=== PATIENT | male | born 1945 | race Caucasian/White ===

== ENCOUNTER 2019-07-27 20:03 | Inpatient (IN) | payer MEDICARE ==
[~2019-07-27] VITALS: Ht 177.8 cm; Wt 100.8 kg
[2019-07-27 21:15] LABS: ALANINE AMINOTRANSFERASE 23 U/L (12-78); ALBUMIN 3.7 G/DL (3.4-5.0); ALBUMIN/GLOBULIN RATIO 1.2 (1.1-1.5); ALKALINE PHOSPHATASE 78 IU/L (46-116); ANION GAP 5 (8-16); ASPARTATE AMINO TRANSFERASE 24 U/L (10-37); BILIRUBIN,TOTAL 0.6 MG/DL (0.1-1.0); BLOOD UREA NITROGEN 12 MG/DL (7-18); BUN/CREATININE RATIO 11.8 (5.4-32.0); CALCIUM 8.4 MG/DL (8.5-10.1); CHLORIDE 91 MMOL/L (99-107); CREATININE 1.02 MG/DL (0.60-1.10); GLUCOSE 122 MG/DL (70-104); POTASSIUM 3.9 MMOL/L (3.5-5.1); TOTAL CARBON DIOXIDE 24.2 MMOL/L (24-32); TOTAL PROTEIN 6.9 G/DL (6.4-8.2); eGFR 71 ML/MIN
[2019-07-27] MEDS ORDERED: ipratropium/albuterol 3ml nebule NEB ONE (21:15)
[2019-07-27 21:24] LABS: SODIUM 120 MMOL/L (135-145)
[2019-07-27 21:27] LABS: BASOPHILS % (AUTO) 0.2 % (0-1); EOSINOPHILS % (AUTO) 0.1 % (0-6); HEMATOCRIT 36.4 % (42.0-52.0); LYMPHOCYTES # (AUTO) 0.5 X10'3 (1.1-4.8); LYMPHOCYTES % (AUTO) 9.4 % (21-51); MEAN CORPUSCULAR HEMOGLOBIN 33.1 PG (27.0-31.0); MEAN CORPUSCULAR HGB CONC 35.6 g/dL (33.0-36.5); MEAN CORPUSCULAR VOLUME 92.9 FL (78-98); MEAN PLATELET VOLUME 8.4 FL (7.4-10.4); MONOCYTES # (AUTO) 0.5 X10'3 (0-0.9); MONOCYTES % (AUTO) 10.6 % (2-12); NEUTROPHILS % (AUTO) 79.7 % (42-75); PLATELET COUNT 150 X10'3 (140-440); RED BLOOD COUNT 3.91 X10'6 (4.70-6.10); RED CELL DISTRIBUTION WIDTH 13.5 % (11.5-14.5); WHITE BLOOD COUNT 5.1 X10'3 (4.5-11.0)
[2019-07-27] MEDS ORDERED: DIPH50CA46 PO (21:29)
[2019-07-27] MEDS ORDERED: INSU100C10 SQ (21:29)
[2019-07-27] MEDS ORDERED: LANTUS SQ (21:29)
[2019-07-27] MEDS ORDERED: LISI40TA4 PO (21:29)
[2019-07-27] MEDS ORDERED: CLOP75TA35 PO (21:29)
[2019-07-27] MEDS ORDERED: ATOR20TA PO (21:29)
[2019-07-27] MEDS ORDERED: normal saline 1000ML IV soln IVB ONE (21:30)
[2019-07-27] MEDS ORDERED: mag hydrox/Alum hydrox/simeth 30ml oral suspension PO PRN (22:30)
[2019-07-27] MEDS ORDERED: magnesium 4gm in 100ml NS 100 ML IV PRN (22:30)
[2019-07-27] MEDS ORDERED: potassium Cl 20 mEq SR tablet PO PRN ×2 (22:30)
[2019-07-27] MEDS ORDERED: acetaminophen 325mg tablet PO PRN ×2 (22:30)
[2019-07-27] MEDS ORDERED: magnesium 2GM in 50ml NS 50 ML IV PRN (22:30)
[2019-07-27] MEDS ORDERED: potassium CL 10mEq/100ml bag 100 ML IV PRN ×2 (22:30)
[2019-07-27] MEDS ORDERED: magnesium hydroxide 30ml (MOM) UD suspension PO PRN (22:30)
[2019-07-27] MEDS ORDERED: magnesium Cl slow-release 64mg tablet PO PRN (22:30)
[2019-07-27] MEDS ORDERED: oseltamivir phos 75mg capsule PO ONE (22:40)
[2019-07-28] VITALS (7 sets, daily range): BP systolic 117–146; BP diastolic 78–100
[2019-07-28] MEDS: ondansetron/PF 4mg/2ml inj IV PRN ×2 (01:17→19:16)
--- NOTE | 2019-07-28 01:17 | NUR ---
Patient in room ED 12. I have received report from DION Min and had the opportunity to ask questions and assume patient care. Pako has agreed to ask the MD if the TROPS need to be started over due to the missed 3hr TROP draw at 2326.
--- NOTE | 2019-07-28 01:58 | NUR ---
Patient arrived to the U 3019 @0135. Patient walked out of [facility] to the bed. A&Ox4. Vital signs: BP 122/84, HR 88, SpO2 92%, RR 24. Patient has complaints of dyspnea from exertion. Denies pain, nausea, and burning on urination. Vomit bag is at bedside for complaints of nausea in the ER. Patient was placed on tele monitor. Educated on isolation status, fluid restriction, fall safety, and MRSA swab.
[2019-07-28] MEDS ORDERED: dextrose 50%-water 50ml dispensing syringe IV PRN ×2 (05:25)
[2019-07-28] MEDS ORDERED: dextrose ORAL solution 15 GM/59 ML bottle PO PRN ×2 (05:25)
[2019-07-28] MEDS ORDERED: MESSAGE TO PHARMACY PO ONE (05:25)
[2019-07-28] MEDS ORDERED: glucagon, human recombinant 1mg kit SUBCUT PRN (05:25)
--- NOTE | 2019-07-28 05:29 | NUR ---
New orders: Hypo/hyperglycemic protocol and BMP labs at 0900 entered per MD orders on the patient's progress note.
--- NOTE | 2019-07-28 06:17 | NUR ---
Problems reprioritized. Patient report given, questions answered & plan of care reviewed with DION Smith.
--- NOTE | 2019-07-28 06:20 | NUR ---
Patient in room PCU 3019. I have received report from DION Snowden and had the opportunity to ask questions and assume patient care.
[2019-07-28 06:45] LABS: ALBUMIN 3.5 G/DL (3.4-5.0); ANION GAP 3 (8-16); BLOOD UREA NITROGEN 11 MG/DL (7-18); BUN/CREATININE RATIO 12.1 (5.4-32.0); CALCIUM 8.7 MG/DL (8.5-10.1); CHLORIDE 92 MMOL/L (99-107); CREATININE 0.91 MG/DL (0.60-1.10); GLUCOSE 111 MG/DL (70-104); SODIUM 122 MMOL/L (135-145); TOTAL CARBON DIOXIDE 26.6 MMOL/L (24-32); eGFR 81 ML/MIN
[2019-07-28 06:49] LABS: POTASSIUM 4.8 MMOL/L (3.5-5.1)
[2019-07-28 07:18] LABS: BASOPHILS % (AUTO) 0.3 % (0-1); EOSINOPHILS % (AUTO) 0.1 % (0-6); HEMATOCRIT 36.8 % (42.0-52.0); HEMOGLOBIN 12.7 g/dl (14.0-17.9); LYMPHOCYTES # (AUTO) 0.5 X10'3 (1.1-4.8); LYMPHOCYTES % (AUTO) 11.3 % (21-51); MEAN CORPUSCULAR HEMOGLOBIN 32.6 PG (27.0-31.0); MEAN CORPUSCULAR HGB CONC 34.4 g/dL (33.0-36.5); MEAN CORPUSCULAR VOLUME 94.7 FL (78-98); MEAN PLATELET VOLUME 8.9 FL (7.4-10.4); MONOCYTES # (AUTO) 0.4 X10'3 (0-0.9); MONOCYTES % (AUTO) 9.4 % (2-12); NEUTROPHILS # (AUTO) 3.3 X10'3 (1.8-7.7); NEUTROPHILS % (AUTO) 78.9 % (42-75); PLATELET COUNT 130 X10'3 (140-440); RED BLOOD COUNT 3.89 X10'6 (4.70-6.10); RED CELL DISTRIBUTION WIDTH 13.2 % (11.5-14.5); WHITE BLOOD COUNT 4.2 X10'3 (4.5-11.0)
[2019-07-28] MEDS: oseltamivir phos 75mg capsule PO SCH ×2 (07:34→19:13)
[2019-07-28] MEDS: clopidogrel 75mg tablet PO SCH (07:34)
[2019-07-28] MEDS: enoxaparin 40mg/0.4ml syringe SQ SCH (07:34)
[2019-07-28] MEDS: lisinopril 20mg tablet PO SCH (07:35)
[2019-07-28] MEDS: K and/or MAG REPLACEMENT MC SCH ×2 (08:00→20:00)
[2019-07-28] MEDS: insulin Lispro (HumaLOG) vial - multi-dose SQ SCH ×3 (09:51→19:16)
[2019-07-28] MEDS: ipratropium/albuterol 3ml nebule NEB PRN (10:12)
[2019-07-28] MEDS ORDERED: normal saline 1000ml 1,000 ML IV ONE (10:25)
[2019-07-28 11:46] LABS: ALBUMIN 3.5 G/DL (3.4-5.0); ANION GAP 8 (8-16); BLOOD UREA NITROGEN 10 MG/DL (7-18); BUN/CREATININE RATIO 11.4 (5.4-32.0); CALCIUM 8.1 MG/DL (8.5-10.1); CHLORIDE 88 MMOL/L (99-107); CREATININE 0.88 MG/DL (0.60-1.10); GLUCOSE 167 MG/DL (70-104); POTASSIUM 3.8 MMOL/L (3.5-5.1); TOTAL CARBON DIOXIDE 24.4 MMOL/L (24-32); eGFR 85 ML/MIN
[2019-07-28 11:56] LABS: SODIUM 120 MMOL/L (135-145)
[2019-07-28] MEDS: normal saline 1000ml 1,000 ML IV SCH (11:56)
[2019-07-28] MEDS: levoFLOXACIN-Levaquin 750MG/D5 150 ML IV SCH (13:18)
--- NOTE | 2019-07-28 14:51 | NUR ---
[id number] MESSAGE: Lucas Rizo Rm 3019 Ok to d/c 1500cc fluid restriction? Also, still want to repeat BMP q 6hr for sodium level per current order? DION Smith ext [id number]
--- NOTE | 2019-07-28 18:15 | NUR ---
Problems reprioritized. Patient report given, questions answered & plan of care reviewed with DION Snowden.
--- NOTE | 2019-07-28 18:23 | NUR ---
Patient in room PCU 3019. I have received report from DION Smith and had the opportunity to ask questions and assume patient care.
[2019-07-28] MEDS ORDERED: atorvastatin 20mg tablet PO SCH (21:00)
[2019-07-28] MEDS ORDERED: diphenhydrAMINE 25mg capsule PO SCH (21:00)
[2019-07-28] MEDS ORDERED: insulin glargine (Lantus) pen - multi-dose SQ SCH (21:00)
--- NOTE | 2019-07-29 00:12 | NUR ---
Paged Respiratory for PRN breathing treatment for audible wheezes without a stethoscope and coughing.
[2019-07-29] MEDS: normal saline 1000ml 1,000 ML IV SCH (00:17)
[2019-07-29] MEDS: ipratropium/albuterol 3ml nebule NEB PRN (00:24)
[2019-07-29 02:00] VITALS: BP 138/81
[2019-07-29 06:00] VITALS: BP 131/76
--- NOTE | 2019-07-29 06:36 | NUR ---
Problems reprioritized. Patient report given, questions answered & plan of care reviewed with Anna Yee RN.
--- NOTE | 2019-07-29 06:51 | NUR ---
Patient in room PCU 3019. I have received report from DION Snowden and had the opportunity to ask questions and assume patient care. Patient currently sitting up on edge of bed, bed locked and low, call light in reach, no acute distress, states he feels better than yesterday, requesting a cup of coffee, will continue to monitor.
[2019-07-29 07:18] LABS: BASOPHILS % (AUTO) 0.3 % (0-1); EOSINOPHILS % (AUTO) 0.2 % (0-6); HEMATOCRIT 36.3 % (42.0-52.0); LYMPHOCYTES # (AUTO) 0.7 X10'3 (1.1-4.8); LYMPHOCYTES % (AUTO) 16.4 % (21-51); MEAN CORPUSCULAR HEMOGLOBIN 33.4 PG (27.0-31.0); MEAN CORPUSCULAR HGB CONC 35.8 g/dL (33.0-36.5); MEAN CORPUSCULAR VOLUME 93.1 FL (78-98); MEAN PLATELET VOLUME 8.4 FL (7.4-10.4); MONOCYTES # (AUTO) 0.4 X10'3 (0-0.9); MONOCYTES % (AUTO) 10.9 % (2-12); NEUTROPHILS # (AUTO) 2.9 X10'3 (1.8-7.7); NEUTROPHILS % (AUTO) 72.2 % (42-75); PLATELET COUNT 143 X10'3 (140-440); RED CELL DISTRIBUTION WIDTH 13.2 % (11.5-14.5)
[2019-07-29 07:30] LABS: ALBUMIN 3.3 G/DL (3.4-5.0); ANION GAP 6 (8-16); BLOOD UREA NITROGEN 10 MG/DL (7-18); BUN/CREATININE RATIO 11.6 (5.4-32.0); CALCIUM 8.3 MG/DL (8.5-10.1); CHLORIDE 95 MMOL/L (99-107); CREATININE 0.86 MG/DL (0.60-1.10); GLUCOSE 130 MG/DL (70-104); SODIUM 128 MMOL/L (135-145); TOTAL CARBON DIOXIDE 26.6 MMOL/L (24-32); eGFR 87 ML/MIN
[2019-07-29] MEDS: insulin Lispro (HumaLOG) vial - multi-dose SQ SCH ×2 (07:55→12:47)
[2019-07-29] MEDS: clopidogrel 75mg tablet PO SCH (07:56)
[2019-07-29] MEDS: levoFLOXACIN-Levaquin 750MG/D5 150 ML IV SCH (07:56)
[2019-07-29] MEDS: enoxaparin 40mg/0.4ml syringe SQ SCH (07:56)
[2019-07-29] MEDS: oseltamivir phos 75mg capsule PO SCH (07:56)
[2019-07-29] MEDS: lisinopril 20mg tablet PO SCH (07:57)
[2019-07-29] MEDS: K and/or MAG REPLACEMENT MC SCH (08:00)
[2019-07-29 11:00] VITALS: BP 115/82
[2019-07-29] MEDS ORDERED: LEVO500T89 PO (12:36)
[2019-07-29] MEDS ORDERED: ALBU8.5H8 INH (12:36)
[2019-07-29] MEDS ORDERED: TAM75C PO (12:36)
--- NOTE | 2019-07-29 13:32 | NUR ---
Received orders for patient to discharge home. Patient belongings gathered, IV removed, catheter tip intact, hemostasis achieved, wrist band removed, patient showered and dressed with minimal assistance, patient ambulated to wheelchair and transported to [facility] with and son in accompaniment. Prescriptions called in. Educated patient and spouse on discharge medications and follow up instructions. Understanding of instructions was verbalized. Patient stable at time of discharge.
== END 2019-07-29 13:30 | disposition home or self-care (01) | DRG 193 ==
LOC: ER 20:04 → ED HOLD 22:35 → EDBEDREQ 07-28 00:45 → PCU 3S 07-28 01:30
PROVIDERS: ADMIT Hospitalist; ATTEND Family Medicine
DX: J10.08 Influenza due to other identified influenza virus with other specified pneumonia (principal); J96.90 Respiratory failure, unspecified, unspecified whether with hypoxia or hypercapnia; E87.1 Hypo-osmolality and hyponatremia; E11.9 Type 2 diabetes mellitus without complications; J15.9 Unspecified bacterial pneumonia; J20.9 Acute bronchitis, unspecified; J44.0 Chronic obstructive pulmonary disease with (acute) lower respiratory infection; J44.1 Chronic obstructive pulmonary disease with (acute) exacerbation; E86.0 Dehydration; I10 Essential (primary) hypertension; R01.1 Cardiac murmur, unspecified; Z86.73 Personal history of transient ischemic attack (TIA), and cerebral infarction without residual deficits; Z79.899 Other long term (current) drug therapy; Z79.4 Long term (current) use of insulin
CPT/HCPCS: 36415; 71045; 80048; 80053; 82948; 83036; 83735; 83880; 84145; 84295; 84484; 85025; 87081; 87502; 87503; 93005; 94640; 94760; 96360; 99285; G0378; J1650; J1815; J1956; J2405; J7030; Q0163

== ENCOUNTER 2020-07-16 12:06 | Emergency (ER) | payer MEDICARE ==
[~2020-07-16] VITALS: Ht 175.3 cm; Wt 99.5 kg
[~2020-07-16 12:06] MED LIST: ALBU8.5H8 INH; ATOR20TA PO; CLOP75TA34 PO; DIPH50CA46 PO; INSU100C10 SQ; LANTUS SQ; LISI40TA4 PO; TAM75C PO
[2020-07-16 12:40] LABS: BASOPHILS % (AUTO) 0.7 % (0-1); EOSINOPHILS # (AUTO) 0.1 X10'3 (0-0.9); EOSINOPHILS % (AUTO) 0.9 % (0-6); HEMATOCRIT 41.1 % (42.0-52.0); HEMOGLOBIN 14.2 g/dl (14.0-17.9); LYMPHOCYTES # (AUTO) 1.1 X10'3 (1.1-4.8); LYMPHOCYTES % (AUTO) 19.7 % (21-51); MEAN CORPUSCULAR HEMOGLOBIN 32.8 PG (27.0-31.0); MEAN CORPUSCULAR HGB CONC 34.5 g/dL (33.0-36.5); MONOCYTES # (AUTO) 0.6 X10'3 (0-0.9); MONOCYTES % (AUTO) 10.4 % (2-12); NEUTROPHILS # (AUTO) 3.9 X10'3 (1.8-7.7); NEUTROPHILS % (AUTO) 68.3 % (42-75); PLATELET COUNT 188 X10'3 (140-440); RED BLOOD COUNT 4.32 X10'6 (4.70-6.10); RED CELL DISTRIBUTION WIDTH 13.5 % (11.5-14.5); WHITE BLOOD COUNT 5.7 X10'3 (4.5-11.0)
[2020-07-16 12:53] LABS: ALANINE AMINOTRANSFERASE 20 U/L (12-78); ALBUMIN/GLOBULIN RATIO 1.1 (1.1-1.5); ALKALINE PHOSPHATASE 82 IU/L (46-116); ANION GAP 6 (8-16); ASPARTATE AMINO TRANSFERASE 16 U/L (10-37); BILIRUBIN,TOTAL 0.4 MG/DL (0.1-1.0); BLOOD UREA NITROGEN 11 MG/DL (7-18); BUN/CREATININE RATIO 11.8 (5.4-32.0); CALCIUM 8.7 MG/DL (8.5-10.1); CHLORIDE 97 MMOL/L (99-107); CREATININE 0.93 MG/DL (0.60-1.10); GLUCOSE 185 MG/DL (70-104); LIPASE < 50 U/L (73-393); POTASSIUM 4.7 MMOL/L (3.5-5.1); SODIUM 130 MMOL/L (135-145); TOTAL CARBON DIOXIDE 27.4 MMOL/L (24-32); TOTAL PROTEIN 7.8 G/DL (6.4-8.2); eGFR 79 ML/MIN
[2020-07-16 13:30] VITALS: BP 127/89
[2020-07-16 13:37] LABS: CLARITY,URINE CLEAR (Clear); COLOR,URINE YELLOW (Yellow); GLUCOSE, URINE 250 mg/dl (Neg); KETONES,URINE NEGATIVE (Neg); LEUKOCYTE ESTERASE ,URINE NEGATIVE (Neg); NITRITES, URINE NEGATIVE (Neg); OCCULT BLOOD,URINE NEGATIVE (Neg); PROTEIN,URINE NEGATIVE (Neg); UROBILINOGEN,URINE 0.2 E.U/dL (0.2-1.0)
[2020-07-16 13:43] LABS: UA COLLECTION TYPE URINAL
[2020-07-16] MEDS ORDERED: iohexol 350MG/ML 100ml bottle IV ONE (14:34)
[2020-07-16] MEDS ORDERED: SIME80TA16 PO (15:47)
[2020-07-16 15:54] LABS: D-DIMER 1.45 MG/L FEU (0-0.50)
== END 2020-07-16 16:09 | disposition home or self-care (01) ==
LOC: ER 12:07
DX: R14.0 Abdominal distension (gaseous) (principal); R06.02 Shortness of breath; I10 Essential (primary) hypertension; E11.9 Type 2 diabetes mellitus without complications; Z86.73 Personal history of transient ischemic attack (TIA), and cerebral infarction without residual deficits; Z87.01 Personal history of pneumonia (recurrent); Z79.4 Long term (current) use of insulin; Z79.899 Other long term (current) drug therapy
CPT/HCPCS: 36415; 71045; 71275; 74177; 80053; 81003; 83690; 83880; 85025; 85379; 85610; 99285; Q9967

== ENCOUNTER 2021-04-13 14:10 | Emergency (ER) | payer MEDICARE, BC ==
[~2021-04-13] VITALS: Ht 177.8 cm; Wt 9.1 kg
[~2021-04-13 14:10] MED LIST changes: +ALBU8.5H17 INH; -ALBU8.5H8 INH; +LISI40TA13 PO; -LISI40TA4 PO; +SIME80TA16 PO
[2021-04-13 15:04] LABS: BASOPHILS % (AUTO) 0.6 % (0-1); EOSINOPHILS % (AUTO) 0.6 % (0-6); HEMATOCRIT 42.6 % (42.0-52.0); HEMOGLOBIN 14.8 g/dl (14.0-17.9); LYMPHOCYTES # (AUTO) 1.3 X10'3 (1.1-4.8); LYMPHOCYTES % (AUTO) 30.5 % (21-51); MEAN CORPUSCULAR HEMOGLOBIN 33.5 PG (27.0-31.0); MEAN CORPUSCULAR HGB CONC 34.7 g/dL (33.0-36.5); MEAN CORPUSCULAR VOLUME 96.3 FL (78-98); MEAN PLATELET VOLUME 8.3 FL (7.4-10.4); MONOCYTES # (AUTO) 0.5 X10'3 (0-0.9); MONOCYTES % (AUTO) 10.4 % (2-12); NEUTROPHILS # (AUTO) 2.6 X10'3 (1.8-7.7); NEUTROPHILS % (AUTO) 57.9 % (42-75); PLATELET COUNT 196 X10'3 (140-440); RED BLOOD COUNT 4.42 X10'6 (4.70-6.10); RED CELL DISTRIBUTION WIDTH 14.4 % (11.5-14.5); WHITE BLOOD COUNT 4.4 X10'3 (4.5-11.0)
[2021-04-13 15:11] LABS: PARTIAL THROMBOPLASTIN TIME 28 SECONDS (22-32)
[2021-04-13 15:12] LABS: ALANINE AMINOTRANSFERASE 19 U/L (12-78); ALKALINE PHOSPHATASE 70 IU/L (46-116); ANION GAP 10 (8-16); ASPARTATE AMINO TRANSFERASE 18 U/L (10-37); BILIRUBIN,TOTAL 0.4 MG/DL (0.1-1.0); BLOOD UREA NITROGEN 13 MG/DL (7-18); BUN/CREATININE RATIO 13.3 (5.4-32.0); CALCIUM 8.7 MG/DL (8.5-10.1); CHLORIDE 96 MMOL/L (99-107); CREATININE 0.98 MG/DL (0.60-1.10); GLUCOSE 71 MG/DL (70-104); POTASSIUM 4.2 MMOL/L (3.5-5.1); SODIUM 132 MMOL/L (135-145); TOTAL CARBON DIOXIDE 25.9 MMOL/L (24-32); eGFR 74 ML/MIN
[2021-04-13 15:17] LABS: TROPONIN I < 0.04 NG/ML (0.0-0.05)
[2021-04-13] MEDS ORDERED: ALBU8.5H17 INH (17:17)
[2021-04-13 17:45] VITALS: BP 148/100
== END 2021-04-13 17:48 | disposition home or self-care (01) ==
LOC: ER 14:10
DX: R51.9 Headache, unspecified (principal); R41.0 Disorientation, unspecified; R47.01 Aphasia; I10 Essential (primary) hypertension; E11.9 Type 2 diabetes mellitus without complications; Z86.73 Personal history of transient ischemic attack (TIA), and cerebral infarction without residual deficits; Z87.01 Personal history of pneumonia (recurrent); Z79.899 Other long term (current) drug therapy; Z79.4 Long term (current) use of insulin
CPT/HCPCS: 36415; 70450; 71045; 80053; 84484; 85025; 85610; 85730; 93005; 99285

== ENCOUNTER 2024-09-25 09:26 | Day surgery (SDC) | payer MEDICARE ==
[2024-09-21 10:38] LABS: BASOPHILS % (AUTO) 0.7 % (0-1); EOSINOPHILS % (AUTO) 0.1 % (0-6); HEMATOCRIT 33.7 % (42.0-52.0); HEMOGLOBIN 11.7 g/dl (14.0-17.9); LYMPHOCYTES # (AUTO) 0.8 X10'3 (1.1-4.8); LYMPHOCYTES % (AUTO) 10.6 % (21-51); MEAN CORPUSCULAR HEMOGLOBIN 33.3 PG (27.0-31.0); MEAN CORPUSCULAR HGB CONC 34.7 g/dL (33.0-36.5); MEAN PLATELET VOLUME 8.5 FL (7.4-10.4); MONOCYTES # (AUTO) 0.7 X10'3 (0-0.9); MONOCYTES % (AUTO) 9.3 % (2-12); NEUTROPHILS # (AUTO) 5.9 X10'3 (1.8-7.7); NEUTROPHILS % (AUTO) 79.3 % (42-75); PLATELET COUNT 285 X10'3 (140-440); RED BLOOD COUNT 3.51 X10'6 (4.70-6.10); RED CELL DISTRIBUTION WIDTH 16.6 % (11.5-14.5); WHITE BLOOD COUNT 7.4 X10'3 (4.5-11.0)
[2024-09-21 10:43] LABS: ALBUMIN 3.2 G/DL (3.4-5.0); ANION GAP 7 (8-16); BLOOD UREA NITROGEN 15 MG/DL (7-18); BUN/CREATININE RATIO 18.3 (10.0-20.0); CALCIUM 8.8 MG/DL (8.5-10.1); CHLORIDE 101 MMOL/L (99-107); CHOL/HDL RATIO 2.8 (0.00-4.99); CHOLESTEROL 88 MG/DL (0-200); CREATININE 0.82 MG/DL (0.60-1.10); GLUCOSE 129 MG/DL (70-104); HDL CHOLESTEROL 32 MG/DL (35-60); LDL CHOLESTEROL 47 MG/DL (50-100); POTASSIUM 4.2 MMOL/L (3.5-5.1); SODIUM 134 MMOL/L (135-145); TOTAL CARBON DIOXIDE 26.1 MMOL/L (24-32); TRIGLYCERIDES 52 MG/DL (20-135); eGFR > 90 ML/MIN
[2024-09-21 10:46] LABS: APTT 28 SECONDS (22-32); INR 1.2 INR; PROTHROMBIN TIME 11.7 SECONDS (9.0-12.0)
[2024-09-25] VITALS (7 sets, daily range): BP systolic 118–145; BP diastolic 74–100; PULSE 86–92; RESP 16; TEMP 97.6; O2SAT 92–96
[~2024-09-25] VITALS: Ht 170.2 cm; Wt 84.1 kg
[~2024-09-25 09:26] MED LIST changes: +ASPI81TA53 PO; +ATOR-2 PO; -ATOR20TA PO; -DIPH50CA46 PO; +METO-395 PO; -SIME80TA16 PO; -TAM75C PO
[2024-09-25] MEDS ORDERED: MAGN100T PO (11:10)
[2024-09-25] MEDS ORDERED: LANS15CA18 PO (11:10)
[2024-09-25] MEDS ORDERED: [UNRECOGNIZED DRUG - OTHER] PO (11:10)
[2024-09-25] MEDS ORDERED: ATOR-429 PO (11:10)
[2024-09-25] MEDS: diphenhydrAMINE 25mg capsule PO PRN (11:17)
[2024-09-25] MEDS: LORazepam 0.5 MG tablet PO PRN (11:17)
[2024-09-25] MEDS: normal saline 1,000 ML IV SCH (11:18)
[2024-09-25] MEDS ORDERED: LIDOcaine 1% (10mg/ml) 2ml vial ONE (12:01)
[2024-09-25] MEDS ORDERED: verapamil 2.5 mg/ml inj IV ONE (12:01)
[2024-09-25] MEDS ORDERED: fentaNYL/PF 50MCG/1 ML 2ML syringe ONE (12:02)
[2024-09-25] MEDS ORDERED: heparin 1,000unit/ml 10ml vial 10 ML ONE (12:02)
[2024-09-25] MEDS ORDERED: midazolam 1 mg/ML 2ml injection ONE (12:02)
[2024-09-25] MEDS ORDERED: iohexol 350MG/ML 100ml bottle IV ONE (12:02)
[2024-09-25] MEDS ORDERED: nitroGLYCERIN 500mcg/5mL D5W 5 ML IV ONE (12:03)
[2024-09-25] MEDS ORDERED: LIDOcaine 1% 30ml preserv. free vial ONE (12:50)
[2024-09-25] MEDS ORDERED: HYDROcodone/acetaminophen 10/325mg tab PO PRN (14:00)
[2024-09-25] MEDS ORDERED: HYDROcodone/acetaminophen 5mg/325mg tablet PO PRN (14:00)
[2024-09-26 06:09] LABS: ISTAT HGB MIX 10.5 g/dl (14.0-17.9); ISTAT HGB MIX 10.9 g/dl (14.0-17.9); ISTAT Hct MIX 31 %PCV (42-52); ISTAT Hct MIX 32 %PCV (42-52); ISTAT O2 SATURATION MIX VENOUS 51 % (60-80); ISTAT O2 SATURATION MIX VENOUS 92 % (60-80); ISTAT SOURCE BLNK
== END 2024-09-25 15:20 | disposition home or self-care (01) ==
LOC: SSTAY O 09:26
PROVIDERS: ATTEND Student in an Organized Health Care Education/Training Program
DX: I35.0 Nonrheumatic aortic (valve) stenosis (principal); I25.10 Atherosclerotic heart disease of native coronary artery without angina pectoris; I48.91 Unspecified atrial fibrillation; I11.0 Hypertensive heart disease with heart failure; I50.22 Chronic systolic (congestive) heart failure; E11.40 Type 2 diabetes mellitus with diabetic neuropathy, unspecified; E78.5 Hyperlipidemia, unspecified; I69.351 Hemiplegia and hemiparesis following cerebral infarction affecting right dominant side; G62.9 Polyneuropathy, unspecified; G47.33 Obstructive sleep apnea (adult) (pediatric); Z79.4 Long term (current) use of insulin; Z79.899 Other long term (current) drug therapy; Z98.890 Other specified postprocedural states; Z79.01 Long term (current) use of anticoagulants
CPT/HCPCS: 36415; 80048; 80061; 82803; 82948; 85014; 85025; 85610; 85730; 93005; 93456; A6258; A6402; C1751; C1769; C1894; J1644; J2003; J2250; J3010; J3490; J7030; Q0163; Q9967; Z7610; 99152; 99153

== ENCOUNTER 2024-10-10 10:32 | Outpatient (CLI) | payer MEDICARE ==
[~2024-10-10 10:32] MED LIST changes: -ALBU8.5H17 INH; -ASPI81TA53 PO; -ATOR-2 PO; +ATOR-429 PO; +IODIXANOL 320 MG/ML INFUS..BTL 100ML IV ONE; +LANS15CA18 PO; +MAGN100T PO; -METO-395 PO; +[UNRECOGNIZED DRUG - OTHER] PO
--- NOTE | 2024-10-10 12:52 | RADIOLOGY REPORT ---
EXAM: DI CHEST,TWO VIEWS CLINICAL HISTORY: AV STENOSIS,SOB,CAROTID STENOSIS COMPARISON: None TECHNIQUE: Frontal and lateral view of the chest was obtained FINDINGS: Lines and Tubes: None Lungs: Bibasilar opacities Pleura: Small right pleural effusion. Trace left pleural effusion. Cardiomediastinal contours: Unremarkable Bones: No acute osseous abnormality. IMPRESSION: Small right pleural effusion and trace left pleural effusion. Bibasilar opacities.
--- NOTE | 2024-10-11 16:49 | RADIOLOGY REPORT ---
Procedure: CT CTA TAVR Reason for study/Clinical History: Chest pain, evaluate for dissection. Comparison Study: None available at time of dictation. Exam Date: 10/10/2024 12:50 PM TECHNIQUE: Multiplanar reformatted images were generated from volumetric data acquired on a multidetector CT [facility]. Cardiac gating was utilized. Arterial phase images were obtained through the chest, abdomen and pelvis following intravenous administration of contrast material. 100 mL visipaque [address] dose reduction techniques were utilized. 3-D reconstructions were performed on an independent work station. Radiation Dose Information: CT Dose: CTDI volume is 65 mGy. Dose-length product is 2208 mGy*cm FINDINGS: Vascular: Aortic measurements: Aortic annulus: 29.4 x 23.5 mm Sinus of valsalva: right cusp 34.9 mm, left cusp 40.5 mm, non-coronary cusp 38.3 mm Right coronary distance: 13.5 Left coronary distance: 16.5 ST junction 31.9 mm Ascending aorta 40.6 mm Aortic arch 26.4 mm Descending aorta 26 mm Aortic hiatus 22.2 mm Upper abdominal aorta 21.2 mm Minimal abdominal aorta 4.76 mm Right common iliac 4.51 mm, tortuosity index 1.14 Left common iliac 3.19 mm, tortuosity index 1.4 There is ectasia of the ascending aorta. No aortic dissection. Aortic arch anatomy is conventional. T here is conventional coronary artery anatomy. Diffuse calcified atherosclerotic plaque. High-grade s tenosis of the proximal left subclavian artery. Moderate stenosis of the celiac artery. High-grade st enosis of the superior mesenteric artery. High-grade stenosis of the left renal artery. No central pulmonary embolism. There is normal dimension of the main pulmonary artery. Heart is normal. There are no intracardiac filling defects. No pericardial effusion. Mediastinum: Subcentimeter mediastinal lymph nodes. Lungs: Bibasilar atelectasis and consolidation. Bilateral pulmonary nodules measuring up to 8 mm. Pleura: Large bilateral pleural effusions right greater than left. Chest wall: No acute abnormality. Abdomen and Pelvis: Liver: Normal in appearance. Gallbladder: Normal in appearance. Spleen: Normal in appearance. Pancreas: Normal in appearance. Adrenals: Normal in appearance. Kidneys: Normal in appearance. Bowel: Normal in appearance. Peritoneum: No free air or free fluid. Lymph nodes: No lymphadenopathy by CT size criteria. Pelvic structures: No pelvic mass. Bones: Normal in appearance. IMPRESSION: 1. TAVR planning with vascular measurements as described above. 2. Diffuse atherosclerotic disease. Ascending aortic aneurysm measuring up to 40 mm. High-grade steno sis of the proximal left subclavian artery. 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 High-grade stenosis of the left renal artery. 3. Large bilateral pleural effusions right greater than left. Bibasilar atelectasis and consolidatio n. Bilateral pulmonary nodules measuring up to 8 mm. Clinical correlation and continued follow-up is recommended. HS:Y
== END 2024-10-10 23:59 | disposition home or self-care (01) ==
LOC: RAD 10:32
PROVIDERS: ATTEND Internal Medicine Cardiovascular Disease
DX: I71.21 Aneurysm of the ascending aorta, without rupture (principal); I35.0 Nonrheumatic aortic (valve) stenosis; R06.02 Shortness of breath; I65.29 Occlusion and stenosis of unspecified carotid artery; J90 Pleural effusion, not elsewhere classified; R91.8 Other nonspecific abnormal finding of lung field; J98.11 Atelectasis; R59.0 Localized enlarged lymph nodes; I70.8 Atherosclerosis of other arteries; I74.5 Embolism and thrombosis of iliac artery
CPT/HCPCS: 71046; 71275; 74174; 75572; Q9967

== ENCOUNTER → 2024-10-24 | Outpatient (CLI) | payer MEDICARE ==
[~2024-10-24] MED LIST changes: +ALBU8HFA INH; +APIX5TAB3 PO; +ATOR-2 PO; +FURO20TA4 PO; +HYOS0.1277 SL; -IODIXANOL 320 MG/ML INFUS..BTL 100ML IV ONE; +LISI10TA27 PO; -LISI40TA13 PO; +LISI40TA20 PO
--- NOTE | 2024-10-24 15:23 | ELECTROCARDIOGRAPH REPORT ---
[facility] Test Date: 2024-10-24 Test Time: 15:20:21 Pat Name: TERRA MORELOS Department: PRE/OP CARDIOLOGY [id number] Room: Gender: M Vial Gauger: TASHI : 1945 Requested By: POORNIMA VELASQUEZ Order Number: [id number] Reading MD: Dr. TRACI John Measurements Intervals [place] Rate: 114 P: 0 [place]: 0 QRS: 103 QRSD: 146 T: -15 QT: 403 QTc: 556 Interpretive Statements Atrial fibrillation Ventricular tachycardia, unsustained RBBB and LPFB Electronically Signed On 10-27-2024 15:05:[address] TRACI John Please click the below link to view image of tracing.
[2024-10-24 15:32] LABS: BASOPHILS % (AUTO) 0.2 % (0-1); EOSINOPHILS % (AUTO) 0 % (0-6); LYMPHOCYTES # (AUTO) 1.3 X10'3 (1.1-4.8); LYMPHOCYTES % (AUTO) 5.8 % (21-51); MEAN CORPUSCULAR HEMOGLOBIN 32.8 PG (27.0-31.0); MEAN CORPUSCULAR HGB CONC 32.8 g/dL (33.0-36.5); MEAN PLATELET VOLUME 9.7 FL (7.4-10.4); MONOCYTES # (AUTO) 0.1 X10'3 (0-0.9); MONOCYTES % (AUTO) 0.6 % (2-12); NEUTROPHILS # (AUTO) 20.2 X10'3 (1.8-7.7); NEUTROPHILS % (AUTO) 93.4 % (42-75); PRE OP HEMATOCRIT 40.5 % (42.0-52.0); PRE OP HEMOGLOBIN 13.3 g/dL (14.0-17.9); PRE OP PLATELET COUNT 150 X10'3 (140-440); RED BLOOD COUNT 4.06 X10'6 (4.70-6.10); RED CELL DISTRIBUTION WIDTH 18.8 % (11.5-14.5)
[2024-10-24 15:42] LABS: PRE OP WHITE BLOOD COUNT 21.6 10'3 (4.8-10.8)
[2024-10-24 15:57] LABS: PRE OP PROTIME 14.6 SECONDS (9.0-12.0)
[2024-10-24 16:06] LABS: ALBUMIN 3.1 G/DL (3.4-5.0); ALBUMIN/GLOBULIN RATIO 0.7 (1.1-1.5); ALKALINE PHOSPHATASE 165 IU/L (46-116); BLOOD UREA NITROGEN 62 MG/DL (7-18); BUN/CREATININE RATIO 34.4 (10.0-20.0); CALCIUM 8.6 MG/DL (8.5-10.1); CHLORIDE 100 MMOL/L (99-107); PRE OP ANION GAP 12 (8-16); PRE OP BILIRUB, TOTAL 1.2 MG/DL (0.0-1.0); PRE OP POTASSIUM 3.5 MMOL/L (3.4-5.1); PRE OP SODIUM 135 MMOL/L (135-145); TOTAL CARBON DIOXIDE 22.9 MMOL/L (24-32); TOTAL PROTEIN 7.5 G/DL (6.4-8.2); eGFR 37 ML/MIN
[2024-10-24 16:22] LABS: PRE OP GLUCOSE 203 MG/DL (70-104)
[2024-10-24 16:23] LABS: PRE OP ALT 644 U/L (30-65); PRE OP AST 843 U/L (10-37)
[2024-10-24 16:24] LABS: PRE OP INR 1.5 INR
[2024-10-24 16:37] LABS: ANISOCYTOSIS 2+; PLATELET ESTIMATE NORMAL; TOTAL CELLS COUNTED 100
[2024-10-24 16:38] LABS: ELLIPTOCYTES FEW
[2024-10-24 17:20] LABS: HEMOGLOBIN A1C 6.2 % (4.5-6.2)
[2024-10-24 17:27] LABS: PRO BRAIN NATRIURETIC PEPTIDE > 30000 PG/ML (0-450)
[2024-10-28 22:42] LABS: BILIRUBIN,URINE NEGATIVE (Neg); CLARITY,URINE CLEAR (Clear); COLOR,URINE YELLOW (Yellow); GLUCOSE, URINE NEGATIVE (Neg); KETONES,URINE NEGATIVE (Neg); LEUKOCYTE ESTERASE ,URINE NEGATIVE (Neg); NITRITES, URINE NEGATIVE (Neg); OCCULT BLOOD,URINE NEGATIVE (Neg); PH,URINE 5.5 (4.8-8.0); PROTEIN,URINE NEGATIVE (Neg)
[2024-10-28 22:43] LABS: UA COLLECTION TYPE NON-SPECIFIED
== END | disposition home or self-care (01) ==
LOC: LAB 08:00 → EDSTATUS 11-01 07:30
PROVIDERS: ATTEND Internal Medicine Cardiovascular Disease
DX: Z01.818 Encounter for other preprocedural examination (principal); I35.0 Nonrheumatic aortic (valve) stenosis; R06.02 Shortness of breath; I48.91 Unspecified atrial fibrillation; I45.2 Bifascicular block; I45.10 Unspecified right bundle-branch block; I44.5 Left posterior fascicular block; I47.20 Ventricular tachycardia, unspecified
CPT/HCPCS: 36415; 80053; 81003; 83036; 83880; 85007; 85025; 85610; 85730; 86885; 86900; 86901; 86920; 93005; A6213; A6250; A6449; A9900